=== PATIENT | female | born 1985 | race Caucasian/White ===

== ENCOUNTER → 2020-11-01 11:53 | Outpatient (CLI) | payer BC, SELFPAY ==
--- NOTE | ~2020-11-01 | US_ITS ---
EXAMINATION: US thyroid EXAM DATE: 11/01/2020 12:10 INDICATION: Genetic susceptibility to other disease, nontoxic goiter. TECHNIQUE: Multiple grayscale and Doppler images of the thyroid were obtained (by a technologist who performed the scan) and subsequently reviewed. Individual nodules and recommendations may be reporte d in accordance with TI-RADS system as designated by the 2017 ACR White Paper TI-RADS committee. Comp aravind is made to prior examination from 12/22/2018. FINDINGS: The right thyroid lobe measures 5.9 x 1.8 x 1.8 cm, the left measuring 5.1 x 1.7 x 1.8 cm. These narda urements are mild to moderately enlarged. Again there are several small category TR 4 thyroid nodules bilaterally, measuring up to 6 mm. These are unchanged and not likely clinically significant. IMPRESSION: Multinodular goiter. Return to clinical follow-up and if additional palpable abnormalit y develops a repeat ultrasound can be obtained. Reviewed, dictated and finalized at location A. IMPRESSION: Multinodular goiter. Return to clinical follow-up and if addition al palpable abnormality develops a repeat ultrasound can be obtained.
== END ==
PROVIDERS: PCP Family Medicine; Visit Provider Family Medicine
DX: E04.2 Nontoxic multinodular goiter (principal); Z00.00 Encounter for general adult medical examination without abnormal findings
CPT/HCPCS: 76536

== ENCOUNTER 2020-11-16 15:15 | Outpatient (CLI) | payer BC, SELFPAY | END 2020-11-16 15:16 | disposition home or self-care (01) | LOC: ANHCOVIDVC 15:15 | PROVIDERS: PCP Family Medicine | DX: Z23 Encounter for immunization (principal) | CPT/HCPCS: 0001A; 91300 ==

== ENCOUNTER 2020-12-07 15:17 | Outpatient (CLI) | payer BC, SELFPAY | END 2020-12-07 15:18 | disposition home or self-care (01) | LOC: ANHCOVIDVC 15:17 | PROVIDERS: PCP Family Medicine | DX: Z23 Encounter for immunization (principal) | CPT/HCPCS: 0002A; 91300 ==

== ENCOUNTER → 2021-10-22 12:07 | Outpatient (CLI) | payer BC, SELFPAY ==
--- NOTE | ~2021-10-22 | XR_ITS ---
EXAMINATION: XR foot RT min 3V DATE: 10/22/2021 12:21 INDICATION: Right foot pain, initial encounter TECHNIQUE: Dorsoplantar, lateral, and 2 oblique views of the right foot were obtained. COMPARISON: None. FINDINGS: There is an acute, traumatic, closed, comminuted fracture of the distal shaft of the fifth metatarsal. The distal fracture fragment is dorsally displaced approximately 3 mm. No additional acut e osseous findings are evident. Soft tissue swelling surrounds the fracture. The joint spaces are nor mal. IMPRESSION: 1. Acute, comminuted shaft fracture of the fifth metatarsal. Reviewed, dictated and finalized at location B.
== END ==
PROVIDERS: PCP Physician Assistant Medical; Visit Provider Physician Assistant Medical
DX: S92.351A Displaced fracture of fifth metatarsal bone, right foot, initial encounter for closed fracture (principal); X58.XXXA Exposure to other specified factors, initial encounter
CPT/HCPCS: 73630

== ENCOUNTER → 2021-11-06 11:55 | Outpatient (CLI) | payer BC, SELFPAY ==
--- NOTE | ~2021-11-06 | XR_ITS ---
EXAM: XR foot RT min 3V HISTORY: S92.351A - Displaced fracture of fifth metatarsal bone, r... COMPARISON: 10/22/2021. FINDINGS: Osteopenia. Comminuted fracture of the distal right fifth metatarsal shaft. Superior displ acement of the dominant fragments. Alignment is unchanged. No healing changes. No other fracture. No dislocation. IMPRESSION: Stable comminuted right fifth metatarsal fracture. No interval healing changes detected. Reviewed, dictated and finalized at location K.
== END ==
PROVIDERS: Visit Provider Physician Assistant Medical
DX: S92.351A Displaced fracture of fifth metatarsal bone, right foot, initial encounter for closed fracture (principal); X58.XXXA Exposure to other specified factors, initial encounter
CPT/HCPCS: 73630

== ENCOUNTER 2021-11-12 07:52 | Outpatient (CLI) | payer BC, SELFPAY ==
--- NOTE | ~2021-11-12 | XR_ITS ---
EXAMINATION: XR foot RT min 3V EXAM DATE: 11/12/2021 08:18 INDICATION: fx f/u rolled ankle on the 20 of october. TECHNIQUE: Right foot dorsoplantar, lateral and oblique projections obtained and reviewed. Compariso n is made to prior examination from 10/22/2021, 11/06. FINDINGS: Again there is mildly comminuted, displaced right 5th metacarpal fracture, appearance and position appears not significantly changed aside from slightly less distinct fracture margin. No call us formation. No other acute findings. IMPRESSION: Displaced right 5th metacarpal fracture, position stable. Reviewed, dictated and finalized at location B.
== END 2021-11-12 07:53 | disposition home or self-care (01) ==
LOC: CHSIMG 07:55
PROVIDERS: PCP Family Medicine; Visit Provider Orthopaedic Surgery
DX: M79.671 Pain in right foot (principal)
CPT/HCPCS: 73630

== ENCOUNTER 2022-01-21 08:52 | Outpatient (CLI) | payer BC, SELFPAY ==
--- NOTE | ~2022-01-21 | XR_ITS ---
EXAMINATION: XR foot RT min 3V DATE: 01/21/2022 09:22 INDICATION: Right fifth metatarsal fracture follow-up TECHNIQUE: Dorsoplantar, lateral, and 2 oblique views of the right foot were obtained. COMPARISON: 12/04/2021 FINDINGS: Again seen is a mildly comminuted fracture of the right fifth metatarsal neck. The distalmo st fracture fragment remains dorsally displaced by approximately 4 mm. Calcified callus at the fractu re site has increased. No additional osseous abnormality is identified. IMPRESSION: 1. Right fifth metatarsal neck fracture with routine healing. Reviewed, dictated and finalized at location A.
== END 2022-01-21 08:53 | disposition home or self-care (01) ==
LOC: CHSIMG 08:54
PROVIDERS: PCP Family Medicine; Visit Provider Orthopaedic Surgery
DX: M79.671 Pain in right foot (principal)
CPT/HCPCS: 73630

== ENCOUNTER 2022-02-27 09:26 | Emergency (ER) | payer BC, SELFPAY ==
[2022-02-27 09:36] VITALS: BP 167/102; PULSE 94; RESP 16; TEMP 36.7; O2SAT 100
--- NOTE | 2022-02-27 09:51 | ED.NAVMDI ---
HPI - Nausea/Vomiting/Diarrhea General Chief complaint: Nausea/Vomiting/Diarrhea Stated complaint: DIARRHEA/STOMACH CRAMPS Time Seen by Provider: 02/27/22 09:46 Source: patient and RN notes reviewed Mode of arrival: ambulatory Limitations: no limitations History of Present Illness HPI Narrative: 37-year-old female presented for complaint of epigastric pain, nausea and diarrhea for over 3 weeks. At the onset of symptoms, she returned from vacation in [place] with body aches, fevers chills and nausea with diarrhea. Also endorses 3 other family members with similar symptoms. States they attributed it to the seafood. However she continues to report persistent symptoms despite otc meds imodium, pepto, and bland diet. Denies hematochezia, melena, vomiting, dizziness, fever or chills at this time. Related Data Home Medications Medication Instructions Recorded Confirmed Bacillus coagulans [Digestive PO DAILY 11/15/21 01/21/22 Advantage Probio-Pre] Zinc PO DAILY 11/15/21 01/21/22 ascorbate calcium (vitamin C) PO DAILY 11/15/21 01/21/22 calcium acetate PO DAILY 11/15/21 01/21/22 cholecalciferol (vitamin D3) PO DAILY 11/15/21 01/21/22 multivitamin PO DAILY 11/15/21 01/21/22 omega-3 fatty acids [Fish Oil] PO DAILY 11/15/21 01/21/22 vitamin B complex [B PO DAILY 11/15/21 01/21/22 Complex-Vitamin B12] Allergies Allergy/AdvReac Type Severity Reaction Status Date / Time No Known Allergies Allergy Verified 01/21/22 09:13 Review of Systems Review of Systems: CONSTITUTIONAL: Denies body aches, fever, chills ENT: Denies rhinorrhea, congestion CARDIOVASCULAR: Denies chest pain. RESPIRATORY: Denies cough or dyspnea. GASTROINTESTINAL: Endorses epigastric abdominal pain, nausea, diarrhea. GENITOURINARY: Denies dysuria, hematuria, or CVA tenderness. SKIN: Denies rash, itching, or wounds. MUSCULOSKELETAL: Denies back pain, joint pain, or myalgia. NEUROLOGIC: Denies headache, numbness, tingling, or weakness. All systems reviewed & are unremarkable except as noted in HPI and below PMFSH Past Medical History Medical History Acute sinusitis Asthma Claustrophobia Family History Family History Grandparent Diabetes mellitus Family history of malignant neoplasm of breast Father Hypertension Other HLD (hyperlipidemia) MVP (mitral valve prolapse) Social History Social History Smoking status: Never smoker Second hand tobacco smoke exposure: No Alcohol intake: current Substance use: never Substance use type: does not use Additional occupation/education comments: Self Employed at [employer] Gender identity (if verbalized by the patient): Female Comments At time of signature, I have reviewed and agree with nursing past medical, surgical, social and family history unless otherwise noted. Please see nursing chart for further information. There is no relevant family history pertinent to the presenting complaint Exam Narrative: GENERAL: Well-appearing EYES: EOMI. Conjunctivae normal. ENT: Mucous membranes pink and moist. CHEST: No respiratory distress. Clear to auscultation. HEART: Regular rate and rhythm. ABDOMEN: abd soft, nondistended, normal active bowel sounds. Tender abdomen to epigastric area; No guarding, rebound tenderness, asymmetry SKIN: Warm, dry, no rash. Capillary refill normal. Normal skin turgor. NEURO: No focal deficits. Alert and oriented x3. Course Course Emergency Course: Patient is aware of diagnosis, understands and agrees to treatment plan. Anticipatory guidance given. Patient agrees to follow-up as directed and is aware of reasons to seek care at the emergency department. Portions of this record may have been created with voice recognition software Level of Care: Express Care Visit Vital Signs
== END 2022-02-27 10:22 | disposition home or self-care (01) ==
PROVIDERS: Emergency Provider Nurse Practitioner Family; PCP Family Medicine
DX: R19.7 Diarrhea, unspecified (principal); J45.909 Unspecified asthma, uncomplicated; F40.240 Claustrophobia
CPT/HCPCS: 99213; G0463

== ENCOUNTER 2023-02-17 08:42 | Emergency (ER) | payer BC, SELFPAY ==
--- NOTE | 2023-02-17 08:48 | ED.URI ---
HPI - URI/Sore Throat General Chief Complaint: Upper Respiratory Infection Stated Complaint: sorethroat,congestion Time Seen by Provider: 02/17/23 08:48 Source: patient Mode of arrival: ambulatory Limitations: no limitations History of Present Illness HPI Narrative: Patient is a 38-year-old female who presents with 10 days of sore throat, cough, congestion, headache and fatigue. Denies any fever, chills, nausea, vomiting, diarrhea. States she has been using Mucinex and Advil. States symptoms have stayed constant. Has history of asthma. Does report increased shortness of breath with activity. Related Data Allergies Allergy/AdvReac Type Severity Reaction Status Date / Time No Known Allergies Allergy Verified 02/17/23 08:56 Review of Systems Review of Systems: All systems reviewed & are unremarkable except as noted in HPI and below Constitutional: Constitutional: Denies body ache(s), Denies chills, Reports fatigue, Denies fever(s), Reports headache(s), Denies malaise and Denies weakness Eyes: Eyes: Denies blurry vision, Denies itchy eyes and Denies loss of vision ENT: Denies otalgia, Reports headache(s), Reports nasal congestion, Denies sinus pain and Reports sore throat Cardiovascular: Cardiovascular: Denies chest pain, Denies irregular heart rhythm and Denies dyspnea Respiratory: Respiratory: Reports cough and Reports dyspnea on exertion Gastrointestinal: Gastrointestinal: Denies abdominal pain, Denies diarrhea, Denies nausea and Denies vomiting Musculoskeletal: Musculoskeletal: Denies back pain, Denies myalgias and Denies arthralgias Integumentary/Breasts: Skin/Breast: Denies pruritus and Denies rash Neurologic: Denies headache(s), Denies loss of vision and Denies weakness Psychiatric: Psychiatric: Reports no additional psychiatric complaints Endocrine: Endocrine: Denies fatigue Allergic/Immunologic: Allergic/Immunologic: Denies itchy eyes PMFSH Past Medical History Medical History Acute sinusitis Asthma Claustrophobia Family History Family History Grandparent Diabetes mellitus Family history of malignant neoplasm of breast Father Hypertension Other HLD (hyperlipidemia) MVP (mitral valve prolapse) Social History Social History Smoking status: Never smoker Second hand tobacco smoke exposure: No Alcohol intake: current Drinks per week: 10 Alcohol use details: ultra light beers Substance use: never Substance use type: does not use Lack of Transportation: No Lack of Food: Never True Current Housing: I Have Housing Concerned About Future Housing: No Difficulty Paying Gas/Electric Bills: No Difficulty Paying for Meds: No Currently Unemployed: No Education: Bachelor's Degree Difficulty w/ Childcare or Family Care: No Living arrangements: with family Occupation/Education: occupation Additional occupation/education comments: Self Employed at [employer] Gender identity (if verbalized by the patient): Female Comments At time of signature, agree with nursing past medical, surgical, social and family history. There is no relevant family history pertinent to the presenting complaint. Exam Const: General: cooperative, healthy appearing, comfortable, no acute distress and well nourished Nutritional Appearance: well nourished Orientation/consciousness: patient oriented x3 Limitations: no limitations HENMT: Head: normal to inspection, normocephalic and atraumatic Ears: hearing grossly normal bilaterally, external ears normal, TM's normal bilaterally, EAC's normal and no periauricular adenopathy Face/Nose/Sinus: Normal external nose present, Abnormal mucous membranes and turbinates present erythematous bilateral and diffuse, normal facial exam, sinuses nontender and face symmetric Face and sinus:
[2023-02-17 08:52] VITALS: BP 149/82; PULSE 76; RESP 18; TEMP 36.2; O2SAT 100
== END 2023-02-17 09:08 | disposition home or self-care (01) ==
PROVIDERS: Emergency Provider Nurse Practitioner Family; PCP Family Medicine
DX: J06.9 Acute upper respiratory infection, unspecified (principal); R05.9 Cough, unspecified; J45.909 Unspecified asthma, uncomplicated
CPT/HCPCS: 99213; G0463

== ENCOUNTER 2023-07-24 14:22 | Emergency (ER) | payer BC, SELFPAY ==
[2023-07-24 14:50] VITALS: BP 141/83; PULSE 81; RESP 16; TEMP 36.4; O2SAT 100
--- NOTE | 2023-07-24 14:56 | ED.GENADULT ---
HPI - General Adult General Chief complaint: Abdominal Pain Stated complaint: Lower Back and Stomach Pain Source: patient, RN notes reviewed and old records reviewed Mode of arrival: ambulatory Limitations: no limitations History of Present Illness HPI narrative: 38-year-old female presents with complaint left flank plain this started Friday. Patient states baby has slight frequency but no other urinary symptoms. Patient states had a little bit of nausea. patient denies fever, diarrhea. Patient states pain has improved but is still occasionally having pain MD complaint: flank pain Onset (ago): day(s) (4) Related Data Allergies Allergy/AdvReac Type Severity Reaction Status Date / Time No Known Allergies Allergy Verified 07/24/23 14:43 Review of Systems Constitutional: Constitutional: Reports no additional constitutional complaints, Denies body ache(s), Denies chills, Denies fatigue, Denies fever(s) and Denies headache(s) Eyes: Eyes: Reports no additional eye complaints and Denies blurry vision ENT: Reports system reviewed and no additional complaints, except as documented, Denies vertigo, Denies dizziness, Denies ear discharge, Denies otalgia, Denies facial pain, Denies headache(s), Denies nasal congestion, Denies nasal discharge, Denies sinus pain, Denies sinus pressure and Denies sore throat Cardiovascular: Cardiovascular: Reports no additional cardiovascular complaints, Denies chest pain, Denies chest pain at rest, Denies rapid heart rate and Denies dyspnea Respiratory: Respiratory: Reports no additional respiratory complaints, Denies chest congestion, Denies cough, Denies pain on inspiration, Denies pain with cough and Denies dyspnea Gastrointestinal: Gastrointestinal: Denies abdominal pain, Denies diarrhea, Reports nausea and Denies vomiting Genitourinary: Genitourinary: Denies dysuria, Denies pelvic pain, Reports flank pain ( left), Denies urinary incontinence, Denies urinary hesitancy, Denies urinary urgency, Denies vaginal discharge and Denies vaginal odor Integumentary/Breasts: Skin/Breast: Denies rash Neurologic: Reports system reviewed and no additional complaints, except as documented, Denies vertigo, Denies dizziness and Denies headache(s) Endocrine: Endocrine: Denies fatigue PMFSH Past Medical History Medical History Acute sinusitis Asthma Claustrophobia Family History Family History Grandparent Diabetes mellitus Family history of malignant neoplasm of breast Father Hypertension Other HLD (hyperlipidemia) MVP (mitral valve prolapse) Social History Social History Smoking status: Never smoker Second hand tobacco smoke exposure: No Alcohol intake: current Drinks per week: 10 Alcohol use details: ultra light beers Substance use: never Substance use type: does not use Lack of Transportation: No Lack of Food: Never True Current Housing: I Have Housing Concerned About Future Housing: No Difficulty Paying Gas/Electric Bills: No Difficulty Paying for Meds: No Currently Unemployed: No Education: Bachelor's Degree Difficulty w/ Childcare or Family Care: No Living arrangements: with family Occupation/Education: occupation Additional occupation/education comments: Self Employed at [employer] Gender identity (if verbalized by the patient): Female Comments At the time of my signature, I reviewed and agree with the nursing past medical, surgical, social, and family history. There is no relevant family history pertinent to the patient complaint. Exam Const: General: cooperative, healthy appearing, no acute distress and well nourished Nutritional Appearance: well nourished Orientation/consciousness: patient oriented x3 Limitations: no limitations HENMT: Head: normal to inspection and normo
== END 2023-07-24 15:07 | disposition home or self-care (01) ==
PROVIDERS: Emergency Provider Registered Nurse; PCP Family Medicine
DX: R10.9 Unspecified abdominal pain (principal)
CPT/HCPCS: 81003; 99212; G0463

== ENCOUNTER 2023-07-25 12:44 | Emergency (ER) | payer BC, SELFPAY ==
--- NOTE | ~2023-07-25 | CT_ITS ---
EXAMINATION: CT abdomen pelvis w con DATE: 07/25/2023 15:09 INDICATION: Upper abdominal pain for one week TECHNIQUE: Computed tomography (CT) of the abdomen and pelvis was performed with 100 CC Omnipaque 350 intravenous contrast. Automated exposure control and iterative reconstruction technique were employe d. Exam dose: 459.56 mGy-cm total exam DLP. COMPARISON: None. FINDINGS: The lung bases are clear. Normal heart size. No pericardial or pleural effusion. Small sliding hiatal hernia. The liver, gallbladder, bile ducts, pancreas, pancreatic duct, spleen, and adrenal glands and kidneys appear normal. The urinary bladder, uterus and adnexal areas are unremarkable. Normal caliber of the abdominal aorta. No intraperitoneal or retroperitoneal or pelvic mass lesion or adenopathy or ascites is detected. Normal appendix. No bowel obstruction, bowel wall thickening, pneumatosis or intraperitoneal free air is detected. Included skeletal structures are unremarkable. IMPRESSION: No significant abnormality is demonstrated. Given the history of upper abdominal pain, if there is concern for cholelithiasis, ultrasound examina tion would be more sensitive for excluding no gallstones Reviewed, dictated and finalized at Location A. Reviewed, dictated and finalized at location A. EMS ANALYST DEVELOPER IMPRESSION: No significant abnormality is demonstrated. Given the history of upper abdominal pain, if there is concern for cholelithias is, ultrasound examination would be more sensitive for excluding no gallstones
--- NOTE | ~2023-07-25 | US_ITS ---
US abdomen limited DATE: 07/25/2023 17:45 INDICATION: Upper abdominal pain for one week TECHNIQUE: Real-time imaging of liver, pancreas, gallbladder COMPARISON: 07/25/2023 CT abdomen pelvis FINDINGS: Approximately 1 cm rounded hyperechoic focus in the right hepatic lobe, likely a hemangioma . No hepatic or pancreatic space-occupying mass lesion is detected otherwise. No pancreatic mass lesion. No pancreatic duct dilatation. The common bile duct measures 2.9 mm, rudy l. Normal hepatopedal portal venous flow direction. No gallstones or gallbladder wall thickening or abnormal pericholecystic fluid collection. The sonogr aphic Nunn's sign. IMPRESSION: Probable 1 cm right hepatic hemangioma; otherwise negative Reviewed, dictated and finalized at Location [facility]. Reviewed, dictated and finalized at location A. RIBUTION FIELD ENGINEER
[2023-07-25 12:48] VITALS: BP 165/96; PULSE 88; RESP 16; TEMP 36.4; O2SAT 100
[2023-07-25 13:04] LABS: Basophils Percent Auto 0.8 % (0.2-1.2); Eosinophils Percent Auto 0.4 % (0-4.4); Hematocrit 40.4 % (37.0-47.0); Hemoglobin 13.5 g/dL (12.0-15.0); Immature Granulocyte Absolute 0.02 K/mm3 (0.00-0.031); Immature Granulocyte Percent A 0.4 % (0-0.5); Mean Corpuscular HGB Conc 33.4 g/dl (32-36); Mean Corpuscular Hemoglobin 31.9 pg (26-34); Mean Corpuscular Volume 95.5 fl (80-100); Mean Platelet Volume 10.2 fl (7.4-10.4); Monocytes Absolute Auto 0.3 K/mm3 (0.1-0.6); Monocytes Percent Auto 6.6 % (2.6-8.5); Neutrophils Absolute Auto 3.2 K/mm3 (1.3-6.7); Neutrophils Percent Auto 63.8 % (45.5-73.1); Platelet Count Result 215 k/mm3 (150-375); Red Blood Count 4.23 M/mm3 (4.2-5.4); Red Cell Distribution Width 11.9 % (11.5-14.5)
[2023-07-25 13:16] LABS: Alanine Aminotransferase 22 U/L (6-35); Albumin Level 4.6 g/dL (3.5-5.1); Alkaline Phosphatase 70 U/L (38-126); Anion Gap 9 mmol/L (8-16); Aspartate Amino Transferase 31 U/L (14-36); Bilirubin,Total 0.3 mg/dL (0.2-1.3); Blood Urea Nitrogen 18 mg/dL (7-17); Calcium 9.3 mg/dL (8.4-10.2); Carbon Dioxide 24 mmol/L (22-30); Chloride 105 mmol/L (98-107); Estimated CRCL calculation 70 ml/min; Estimated Glomerular Filt Rate > 60; Glucose 116 mg/dL (65-110); Lipase 95 U/L (23-300); Potassium 3.8 mmol/L (3.4-5.0); Sodium 138 mmol/L (137-145)
[2023-07-25 13:22] LABS: Appearance Urine Clear (Clear); Bacteria Urine None Seen /hpf; Bilirubin Urine Negative (Negative); Blood Urine Negative (Negative); Color Urine Yellow (Yellow); Glucose Urine UA Negative (Negative); Ketones Urine Trace mg/dL (Negative); Leukocyte Esterase Ur Negative LEU/UL (Negative); Nitrate Urine Negative (Negative); Non Pathogenic Casts 0-2; Protein Urine Trace mg/dL (Negative); RBC Urine 0-2 /hpf (0-2); Specific Grav Ur 1.027 (1.001-1.035); Squamous Epithelial Cell Urine Moderate /hpf (Few); Urobilinogen Urine 0.2 mg/dL (<2.0); WBC Urine 0-5 /hpf; pH Urine 5.5 (5.0-9.0)
[2023-07-25 13:31] LABS: Add Urine Microscopic? YES
--- NOTE | 2023-07-25 14:23 | ECG_ITS ---
Measurements Intervals [place] Rate: 69 P: 64 MT: 163 QRS: 56 QRSD: 92 T: 32 QT: 396 QTc: 424 Interpretive Statements SINUS RHYTHM NORMAL ELECTROCARDIOGRAM NO PREVIOUS ECG AVAILABLE FOR COMPARISON Electronically Signed On 07-25-2023 15:29:39 NURSE CLINICIAN by Chris Milian M.D.
[2023-07-25] MEDS: BELLADONNA ALK/PHENOB ELIX 10 ML, MAG HYDROX/ALUMINUM HYD/SIMETH 30 ML, LIDOCAINE HCL 2... PO (14:33)
[2023-07-25 14:40] VITALS: BP 137/76; PULSE 86; RESP 15; O2SAT 100
[2023-07-25 15:04] LABS: Troponin I < 0.012 ng/mL (0.000-0.034)
--- NOTE | 2023-07-25 15:44 | ED.ABDPAIN ---
HPI - Abdominal Pain General Chief Complaint: Abdominal Pain Stated Complaint: abdominal pain Time Seen by Provider: 07/25/23 13:46 Source: patient Mode of arrival: ambulatory Limitations: no limitations History of Present Illness HPI narrative: Patient is a 38-year-old female who presents ED with report of upper abdominal pain. Patient reports pain began on Friday is been intermittent since then. Pain became worse on Friday and Friday, but has been slightly improved since then. Reports pain throughout epigastric region, left upper quadrant, intermittently radiating around to her back. She has tried Tylenol, ibuprofen, nexium for the pain without significant improvement. Denies any other associated symptoms. Denies nausea, vomiting, diarrhea, constipation, dysuria, hematuria, fevers, chest pain, shortness of breath. Related Data Allergies Allergy/AdvReac Type Severity Reaction Status Date / Time No Known Allergies Allergy Verified 07/25/23 12:44 Review of Systems Review of Systems: CONSTITUTIONAL: Denies fever, chills, or sweats. CARDIOVASCULAR: Denies chest pain RESPIRATORY: Denies dyspnea. GASTROINTESTINAL: See HPI. GENITOURINARY: Denies dysuria or hematuria. MUSCULOSKELETAL: See HPI. NEUROLOGIC: Denies headache, dizziness, numbness, or weakness. All systems reviewed & are unremarkable except as noted in HPI and below PMFSH Past Medical History Medical History Acute sinusitis Asthma Claustrophobia Family History Family History Grandparent Diabetes mellitus Family history of malignant neoplasm of breast Father Hypertension Other HLD (hyperlipidemia) MVP (mitral valve prolapse) Social History Social History Smoking status: Never smoker Second hand tobacco smoke exposure: No Alcohol intake: current Drinks per week: 10 Alcohol use details: ultra light beers Substance use: never Substance use type: does not use Lack of Transportation: No Lack of Food: Never True Current Housing: I Have Housing Concerned About Future Housing: No Difficulty Paying Gas/Electric Bills: No Difficulty Paying for Meds: No Currently Unemployed: No Education: Bachelor's Degree Difficulty w/ Childcare or Family Care: No Living arrangements: with family Occupation/Education: occupation Additional occupation/education comments: Self Employed at [employer] Gender identity (if verbalized by the patient): Female Exam Narrative: GENERAL: Well appearing, well-nourished, non-toxic, in no acute distress. HEAD: Normocephalic, atraumatic. RESPIRATORY: Airway patent, respirations nonlabored. Clear to auscultation bilaterally, no rales, rhonchi, wheezing. CARDIOVASCULAR: Regular rate and rhythm without murmurs, rubs, or gallops. ABDOMINAL: Soft, mild tenderness in epigastric region and left upper quadrant, nondistended. Normoactive BS. MUSCULOSKELETAL: Moves all extremities. No gross deformities. SKIN: Warm, dry, normal color. NEURO: A&O X3. Speech clear. Cranial nerves II-XII grossly intact. Steady gait. No ataxic movements. PSYCHIATRIC: Appropriate mood and affect. Normal interaction. Course Vital Signs Vital signs: Vital Signs Temperature 97.6 F 07/25/23 12:48 Pulse Rate 88 07/25/23 12:48 Respiratory Rate 16 07/25/23 12:48 Blood Pressure 165/96 H 07/25/23 12:48 Pulse Oximetry 100 07/25/23 12:48 Oxygen Delivery Room Air 07/25/23 12:48 Temperature 97.6 F 07/25/23 12:48 Pulse Rate 75 07/25/23 18:31 Respiratory Rate 17 07/25/23 18:31 Blood Pressure 132/76 07/25/23 18:31 Pulse Oximetry 99 07/25/23 18:31 Oxygen Delivery Room Air 07/25/23 12:48 MDM - Abdominal Pain MDM Narrative Medical decision making narrative: Patient presented to ED wit
[2023-07-25 18:31] VITALS: BP 132/76; PULSE 75; RESP 17; O2SAT 99
== END 2023-07-25 18:32 | disposition home or self-care (01) ==
PROVIDERS: Emergency Medicine; Emergency Provider Physician Assistant; PCP Family Medicine
DX: R10.12 Left upper quadrant pain (principal); J45.909 Unspecified asthma, uncomplicated; R93.2 Abnormal findings on diagnostic imaging of liver and biliary tract
CPT/HCPCS: 36415; 74177; 76705; 80053; 81001; 81025; 83690; 84484; 85025; 93005; 99284; A9270; Q9967

== ENCOUNTER → 2023-09-01 14:45 | Outpatient (CLI) | payer BC, SELFPAY ==
--- NOTE | ~2023-09-01 | MM_ITS ---
EXAMINATION: MM screening tasha BI w spencer HISTORY: Screening TECHNIQUE: Craniocaudal and mediolateral oblique 3-D tomosynthesis images were obtained and synthetic 2-D images were generated. CAD analysis was submitted and interpreted. COMPARISON: Comparison to multiple prior studies sequentially, with oldest reviewed study dated 08/14. BREAST PARENCHYMAL COMPOSITION: There are scattered areas of fibroglandular density. FINDINGS: There is no evidence of suspicious mass, calcification, or architectural distortion to sugg est malignancy in either breast. There has been no suspicious interval change. IMPRESSION: 1. No mammographic evidence of malignancy. 2. Recommend routine screening mammography in one year. BI-RADS Category 1: Negative Reviewed, dictated and finalized at location A. E WORKER
== END ==
PROVIDERS: PCP Family Medicine; Visit Provider Family Medicine
DX: Z12.31 Encounter for screening mammogram for malignant neoplasm of breast (principal)
CPT/HCPCS: 77063; 77067

== ENCOUNTER 2023-09-14 09:27 | Emergency (ER) | payer BC, SELFPAY ==
[2023-09-14 10:18] VITALS: BP 155/83; PULSE 75; RESP 16; TEMP 36.1; O2SAT 100
--- NOTE | 2023-09-14 10:30 | ED.URI ---
HPI - URI/Sore Throat General Chief Complaint: Upper Respiratory Infection Stated Complaint: sore throat,flew back from [place] yesterday Time Seen by Provider: 09/14/23 10:30 Source: patient Mode of arrival: ambulatory Limitations: no limitations History of Present Illness HPI Narrative: 38-year-old female presents with complaint postnasal drainage, sore throat, intermittent runny nose for the past 4 days. Afebrile. States that she does not feel unwell. Denies chills, body aches, fatigue. Patient recently got back from vacation to [place]. All systems reviewed and negative except as noted above. Related Data Allergies Allergy/AdvReac Type Severity Reaction Status Date / Time No Known Allergies Allergy Verified 09/14/23 10:33 Review of Systems Review of Systems: CONSTITUTIONAL: Denies fever, chills, or sweats. EYES: Denies visual changes, redness, or discharge. ENT: Reports rhinorrhea, postnasal drainage, sore throat. Denies congestion or otalgia. CARDIOVASCULAR: Denies chest pain, palpitations, or edema. RESPIRATORY: Denies cough or dyspnea. GASTROINTESTINAL: Denies abdominal pain, nausea, vomiting, or diarrhea. GENITOURINARY: Denies dysuria or hematuria. SKIN: Denies rash or itching. MUSCULOSKELETAL: Denies back pain, joint pain, or myalgia. NEUROLOGIC: Denies headache, numbness, or weakness. PSYCHIATRIC: Denies anxiety or depression. All other systems reviewed are negative, except as documented in HPI. [facility] Past Medical History Medical History Acute sinusitis Asthma Claustrophobia Family History Family History Grandparent Diabetes mellitus Family history of malignant neoplasm of breast Father Hypertension Other HLD (hyperlipidemia) MVP (mitral valve prolapse) Social History Social History Smoking status: Never smoker Second hand tobacco smoke exposure: No Alcohol intake: current Drinks per week: 10 Alcohol use details: ultra light beers Substance use: never Substance use type: does not use Lack of Transportation: No Lack of Food: Never True Current Housing: I Have Housing Concerned About Future Housing: No Difficulty Paying Gas/Electric Bills: No Difficulty Paying for Meds: No Currently Unemployed: No Education: Bachelor's Degree Difficulty w/ Childcare or Family Care: No Living arrangements: with family Occupation/Education: occupation Additional occupation/education comments: Self Employed at [employer] Gender identity (if verbalized by the patient): Female Comments At time of signature, agree with nursing past medical, surgical, social and family history. There is no relevant family history pertinent to the presenting complaint. Exam Narrative: GENERAL: This is a well-nourished, well-developed patient, in no apparent distress. HEAD: normocephalic, atraumatic. EYES: PERRL. Sclera clear/white. Vision is grossly intact. EARS: External ears normal, auditory canals clear and without drainage, TMs normal without perforation. Hearing grossly intact. NOSE: External nose normal with no obvious nasal discharge, nares without redness, no rhinorrhea. THROAT: Mucous membranes moist, Moderate amount clear postnasal drainage with mild erythema. No swelling or exudates. NECK: Neck supple, non-tender without lymphadenopathy, masses or thyromegaly. CARDIOVASCULAR: Regular rate and rhythm without murmurs, gallops, or rubs. RESPIRATORY: Clear to auscultation. Breath sounds equal bilaterally. No wheezes, rales, or rhonchi. SKIN: warm, Dry, intact with no suspicious lesions or rash, good texture and turgor. NEURO: awake, alert, and oriented to person, place and time. There were no obvious focal neurologic abnormalities. EXTREMITIES: No joint tenderness, effusion, or edema noted.
== END 2023-09-14 10:37 | disposition home or self-care (01) ==
LOC: EXPTROY 09:30
PROVIDERS: Emergency Provider Nurse Practitioner Family; PCP Family Medicine
DX: J01.90 Acute sinusitis, unspecified (principal); Z20.822 Contact with and (suspected) exposure to COVID-19; J45.909 Unspecified asthma, uncomplicated
CPT/HCPCS: 87081; 87426; 87880; 99213; G0463

== ENCOUNTER 2023-11-25 10:33 | Outpatient (CLI) | payer BC, SELFPAY ==
[2023-11-25 19:43] LABS: Kit Draw Collected
== END 2023-11-25 10:34 | disposition home or self-care (01) ==
LOC: ANHGOSHLAB 10:34
PROVIDERS: PCP Family Medicine; Visit Provider Family Medicine
DX: Z00.00 Encounter for general adult medical examination without abnormal findings (principal)
CPT/HCPCS: 36415

== ENCOUNTER 2024-02-15 15:04 | Emergency (ER) | payer BC, SELFPAY ==
--- NOTE | ~2024-02-15 | XR_ITS ---
Left elbow Technique: AP, oblique, and lateral views were obtained. Clinical History: Pain Findings: No acute fracture or dislocation is seen. Osseous alignment is anatomic. Joint spaces are p reserved. There is no displacement of the fat pads, and soft tissues are unremarkable. Impression: Unremarkable radiographs. Reviewed, dictated and finalized at location . Impression: Unremarkable radiographs.
[2024-02-15 15:11] VITALS: BP 164/94; PULSE 80; RESP 16; TEMP 36.3; O2SAT 100
--- NOTE | 2024-02-15 15:12 | ED.UPPEXIN ---
HPI - Extremity Injury (Upper) General Chief Complaint: Extremity Injury, Upper Stated Complaint: L ARM INJURY Time Seen by Provider: 02/15/24 15:13 Source: patient History of Present Illness HPI narrative: Patient presents with complaints of left arm bruising and swelling. She reports that injury was approximately 4 days ago. She was hiking in [place], tripped and fell. She landed on her left side. She does have mild bruising to the left knee, the left arm is bruised extensively from shoulder to wrist. She reports most painful site is the elbow. Pain is worse with flexion and extension the elbow. She denies any loss of consciousness at the time of the accident. She has not been taking anything for her symptoms. Related Data Allergies Allergy/AdvReac Type Severity Reaction Status Date / Time No Known Allergies Allergy Verified 02/15/24 15:17 Review of Systems Review of Systems: All systems reviewed & are unremarkable except as noted in HPI and below Constitutional: Constitutional: Reports no additional constitutional complaints ENT: Reports system reviewed and no additional complaints, except as documented Cardiovascular: Cardiovascular: Reports no additional cardiovascular complaints Respiratory: Respiratory: Reports no additional respiratory complaints Gastrointestinal: Gastrointestinal: Reports no additional gastrointestinal complaints Musculoskeletal: Musculoskeletal: Reports as per HPI Integumentary/Breasts: Skin/Breast: Reports as per HPI PMFSH Past Medical History Medical History Acute sinusitis Asthma Claustrophobia Family History Family History Grandparent Diabetes mellitus Family history of malignant neoplasm of breast Father Hypertension Mother Colon cancer Other HLD (hyperlipidemia) MVP (mitral valve prolapse) Social History Social History Smoking status: Never smoker Second hand tobacco smoke exposure: No Alcohol intake: current Drinks per week: 10 Alcohol use details: ultra light beers Substance use: never Substance use type: does not use Do You Feel Safe in your Home?: Yes Lack of Transportation: No Lack of Food: Never True Current Housing: I Have Housing Concerned About Future Housing: No Difficulty Paying Gas/Electric Bills: No Difficulty Paying for Meds: No Currently Unemployed: No Education: Bachelor's Degree Difficulty w/ Childcare or Family Care: No Living arrangements: with family Occupation/Education: occupation Additional occupation/education comments: Self Employed at [employer] Gender identity (if verbalized by the patient): Female Exam Const: General: cooperative, no acute distress, alert and awake Orientation/consciousness: oriented to person, oriented to place and oriented to time HENMT: Head: normal to inspection Resp: Effort & Inspection: normal respiratory effort and able to speak in complete sentences Auscultation: clear to auscultation bilaterally, no crackles, no rales, no rhonchi and no wheezes Cardio: Palpation: normal PMI Rate: regular rate Rhythm: regular rhythm Heart sounds: S1 normal heart sound present and S2 normal heart sound present Skin: Trauma: other ( Extensive bruising to left arm, bruising to left knee) Full body images: 1. bruising, elbow tenderness 2. mild bruising, no swelling or tenderness Neuro: General: oriented to person, oriented to place and oriented to time Cranial nerves: Yes CN's II-XII intact bilaterally Psych: Appearance: grossly normal Thought process: Normal thought process present Insight: Good insight present (Psych) Judgement: Good judgement present (Psych) Course Course Level of Care: Express Care Visit Vital Signs Vital signs: Vital Signs Temperature 97.3 F L 02/15/24 15:
== END 2024-02-15 15:40 | disposition home or self-care (01) ==
PROVIDERS: Emergency Provider Nurse Practitioner Family; PCP Family Medicine
DX: S40.022A Contusion of left upper arm, initial encounter (principal); S50.12XA Contusion of left forearm, initial encounter; S80.02XA Contusion of left knee, initial encounter; W01.0XXA Fall on same level from slipping, tripping and stumbling without subsequent striking against object, initial encounter; Y93.01 Activity, walking, marching and hiking; J45.909 Unspecified asthma, uncomplicated
CPT/HCPCS: 73070; 99213; G0463